=== PATIENT | female | born 1950 | race Caucasian/White ===

== ENCOUNTER 2019-06-02 21:08 | Emergency (ER) | payer MEDICARE, BC ==
[~2019-06-02] VITALS: Ht 165.1 cm; Wt 77.0 kg
[2019-06-02] MEDS ORDERED: SODIUM CHLORIDE 0.9% 1,000 ML IV ONE (22:30)
[2019-06-02] MEDS ORDERED: ALPRAZOLAM 0.25 MG TABLET PO ONE (22:45)
[2019-06-02 22:54] LABS: BASOPHILS % 0.8 % (0.0-2.0); HEMATOCRIT. 38.9 % (36.0-48.0); HEMOGLOBIN. 13.2 g/dL (12.0-16.0); LYMPHOCYTES % 24.3 % (20.0-50.0); MEAN CORPUSCULAR HEMOGLOBIN 29.4 pg (28.0-32.0); MEAN CORPUSCULAR VOLUME 86.4 fL (81.0-99.0); MEAN PLATELET VOLUME 8.1 fl (7.4-10.4); MONOCYTES % 8.9 % (2.0-8.0); PLATELET 277 x1000/uL (130-400); RED CELL DISTRIBUTION WIDTH 13.7 % (11.6-14.6)
[2019-06-02 22:57] LABS: CHLORIDE 110 mEq/L (98-107)
[2019-06-03 01:07] VITALS: BP 126/67
== END 2019-06-03 01:12 | disposition home or self-care (01) ==
LOC: ER 21:08
DX: R00.2 Palpitations (principal); H53.8 Other visual disturbances; E11.9 Type 2 diabetes mellitus without complications; Z86.73 Personal history of transient ischemic attack (TIA), and cerebral infarction without residual deficits; Z86.59 Personal history of other mental and behavioral disorders
CPT/HCPCS: 36415; 71045; 80053; 83880; 84484; 85025; 93005; 99284; J7030